=== PATIENT | male | born 1950 | race Caucasian/White ===

== ENCOUNTER → 2018-07-15 | Outpatient (CLI) | payer OTHER ==
[~2018-07-15] MED LIST: MULTIVITAMINS1 EAC7 PO
== END ==
LOC: CAT 10:26
PROVIDERS: Family Medicine
DX: I63.9 Cerebral infarction, unspecified (principal); I77.1 Stricture of artery

== ENCOUNTER → 2018-08-26 | Outpatient (CLI) | payer OTHER | LOC: MRI 13:17 | DX: M47.26 Other spondylosis with radiculopathy, lumbar region (principal); M51.16 Intervertebral disc disorders with radiculopathy, lumbar region; M48.061 Spinal stenosis, lumbar region without neurogenic claudication; M43.17 Spondylolisthesis, lumbosacral region; R27.0 Ataxia, unspecified ==